=== PATIENT | male | born 1955 | race Caucasian/White ===

== ENCOUNTER 2017-12-27 17:26 | Emergency (ER) | payer OTHER ==
[2017-12-27] MEDS: cloNIDine HCL 0.1 MG TABLET PO ×2 (18:10)
[2017-12-27] MEDS: LIDOCAINE WITH 8.4% SOD BICARB 3 ML DISP.SYRIN. INJ ×2 (18:11)
[2017-12-27] MEDS: fentaNYL PF VIAL 100 MCG/2 ML VIAL IM ×2 (18:12)
[2017-12-27] MEDS: DIPHTH,PERTUSS(ACELL),TET TOX 0.5 ML DISP.SYRIN. VAX IM ×2 (18:43)
== END 2017-12-27 19:23 | disposition home or self-care (01) ==
LOC: ER 17:26
DX: S01.81XA Laceration without foreign body of other part of head, initial encounter (principal); I10 Essential (primary) hypertension; E11.9 Type 2 diabetes mellitus without complications; Z88.8 Allergy status to other drugs, medicaments and biological substances; Z91.041 Radiographic dye allergy status; Z88.5 Allergy status to narcotic agent; W00.2XXA Other fall from one level to another due to ice and snow, initial encounter; Y93.89 Activity, other specified; Y99.8 Other external cause status; Y92.89 Other specified places as the place of occurrence of the external cause
CPT/HCPCS: 12015; 70450; 70486; 90471; 90715; 96372; 99284-25; J3010